=== PATIENT | female | born 1955 | race Caucasian/White ===

== ENCOUNTER 2021-11-30 01:20 | Emergency (ER) | payer OTHER, MEDICARE ==
[2021-11-30] MEDS ORDERED: Ondansetron 4 MG Tab.DIS PO ONE (01:47)
[2021-11-30 02:25] LABS: ESTIMATED GFR 63 mL/min (>60)
[2021-11-30] MEDS ORDERED: diphenhydrAMINE 50 MG Cap PO ONE (02:41)
== END 2021-11-30 03:15 | disposition home or self-care (01) ==
LOC: FB.ED 01:29
DX: H81.09 Meniere's disease, unspecified ear (principal); R73.9 Hyperglycemia, unspecified; Z79.82 Long term (current) use of aspirin
CPT/HCPCS: 36415; 80048; 81001; 84484; 85027; 93005; 99284; Q0162